=== PATIENT | male | born 1980 | race Caucasian/White ===

== ENCOUNTER 2017-10-20 20:49 | Emergency (ER) | payer OTHER ==
[2017-10-20 20:56] VITALS: BP 129/71; PULSE 100; TEMP 98.2; BMI 36.5
[2017-10-20] MEDS ORDERED: ERYTHROMYCIN 0.5% OPHTHALMIC OINTMENT 3.5 GM TUBE OD ONE (21:04)
[2017-10-20] MEDS ORDERED: IBUPROFEN 400 MG TABLET (FP) PO ONE (21:04)
--- NOTE | 2017-10-20 21:08 | PDOC ---
History of Present Illness - General Chief Complaint: Eye Problem Stated Complaint: EYE PROBLEM Time Seen by Provider: 10/20/17 20:55 History Source: Patient Exam Limitations: No Limitations - History of Present Illness Initial Comments: 10/20/17 21:09 pt with injury to right eye. puppy scratched his eye. happened 20 mins ago. Past History - Past Medical History Allergies/Adverse Reactions: Allergies Allergy/AdvReac Type Severity Reaction Status Date / Time No Known Allergies Allergy Verified 10/20/17 21:06 Home Medications: Ambulatory Orders Sulfacetamide Sodium 10% [Bleph-10 Ophthalmic Solution -] 1 drop OD Q2H #1 bottle 10/20/17 CVA: No COPD: No - Suicide/Smoking/Psychosocial Hx Smoking History: Never smoked Hx Alcohol Use: No Drug/Substance Use Hx: No *Physical Exam - Vital Signs Last Vital Signs Temp Pulse Resp BP Pulse Ox 98.2 F 100 H 20 129/71 95 10/20/17 20:53 10/20/17 20:53 10/20/17 20:53 10/20/17 20:53 10/20/17 20:53 - Physical Exam General Appearance: Yes: Nourished, Appropriately Dressed HEENT: positive: EOMI, MINE, Other (right eye with tearing ) Neck: positive: Supple. negative: Tender Musculoskeletal: positive: Normal Inspection Extremity: positive: Normal Capillary Refill, Normal Inspection, Normal Range of Motion Integumentary: positive: Normal Color, Dry, Warm Neurologic: positive: Fully Oriented, Alert, Normal Mood/Affect, Normal Response , Motor Strength 5/5 Procedures - Eye Procedure Alcaine Drops Administered: Yes Antibiotic Oinment/Drps Admin: right eye (erythromycin) Progress: 10/20/17 21:18 pos fluoroscein stain right eye 3/4 cornea no foreign body 10/20/17 21:19 Medical Decision Making - Medical Decision Making 10/20/17 21:20 cc: right eye pain, tearing photphobia after his puppy scratched the eye pos corneal abrasion will update tetanus motrin, erythromycin patched the eye, pt will see the eye doctor tomorrow, they have their own eye doctor will give info in case they need it and pt understand the plan all questions asked and answered *DC/Admit/Observation/Transfer Diagnosis at time of Disposition: Corneal abrasion, right Qualifiers: Encounter type: initial encounter Qualified Code(s): S05.01XA - Injury of conjunctiva and corneal abrasion without foreign body, right eye, initial encounter - Discharge Dispostion Disposition: HOME Condition at time of disposition: Good - Prescriptions Prescriptions: Sulfacetamide Sodium 10% [Bleph-10 Ophthalmic Solution -] 1 drop OD Q2H #1 bottle - Referrals Referrals: Tristan Naylor MD [Staff Physician] - - Patient Instructions Printed Discharge Instructions: DI for Corneal Abrasion Additional Instructions: follow with the eye doctor tomorrow use the drops as directed protect the eye from bright light no tv no reading take ibuprofen every 8hrs for pain - Post Discharge Activity
[2017-10-20] MEDS ORDERED: DIPHTH,PERTUSS(ACELL),TET 0.5 ML DISP.SYRIN IM ONE (21:09)
== END 2017-10-20 21:19 | disposition home or self-care (01) ==
LOC: JERFT 20:49
PROC: 3E0234Z Introduction of Serum, Toxoid and Vaccine into Muscle, Percutaneous Approach (ICD-10-PCS; principal; 2017-10-20)
DX: S05.01XA Injury of conjunctiva and corneal abrasion without foreign body, right eye, initial encounter (principal); W54.1XXA Struck by dog, initial encounter; Y93.89 Activity, other specified; Y92.018 Other place in single-family (private) house as the place of occurrence of the external cause; Y99.8 Other external cause status
CPT/HCPCS: 90471; 90715; 99281-25